=== PATIENT | female | born 1950 | race Hispanic/Latino ===

== ENCOUNTER 2017-08-27 14:46 | Outpatient (CLI) | payer MEDICARE ==
--- NOTE | 2017-08-27 16:20 | MMO ---
BILATERAL SCREENING MAMMOGRAM: 08/27/17 HISTORY: 67-year-old female for screening mammography. COMPARISON: 07/02/16, 06/09/15, 06/07/14. FINDINGS: Bilateral MLO and CC views of the breast show scattered fibroglandular breast tissue. Benign appeari ng calcifications are seen in both breasts. Vascular calcifications are seen. There is no evidence o f suspicious mass, suspicious clustered microcalcifications or area of architectural distortion. Interpretation of this mammogram was performed with the assistance of computer aided detection. IMPRESSION: BI-RADS 2: Benign Finding(s) Routine annual screening mammography (for women over age 40). POS: [facility]
== END 2017-08-27 14:47 | disposition home or self-care (01) ==
LOC: MAMMO 14:46
PROVIDERS: ATTEND Family Medicine
DX: Z12.31 Encounter for screening mammogram for malignant neoplasm of breast (principal)
CPT/HCPCS: 77067; G0202

== ENCOUNTER 2018-09-18 12:44 | Outpatient (CLI) | payer MEDICARE | END 2018-09-18 12:45 | disposition home or self-care (01) | LOC: BICMAMMO 12:44 | PROVIDERS: ATTEND Family Medicine | DX: Z12.31 Encounter for screening mammogram for malignant neoplasm of breast (principal); Z85.3 Personal history of malignant neoplasm of breast | CPT/HCPCS: 77063; 77067 ==

== ENCOUNTER 2021-01-25 15:03 | Outpatient (CLI) | payer MEDICARE ==
--- NOTE | 2021-01-25 15:37 | MMO ---
Bilateral MAMMO Bilat Screen [facility]. CLINICAL HISTORY: Patient is 70 years old and is seen for screening. The patient has the following family history of breast cancer: mother. The patient has a history of malignant (generic) in the left breast 2003. 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 VIEWS: The views performed were: bilateral craniocaudal with tomosynthesis and bilateral mediolateral oblique with tomosynthesis. FILMS COMPARED: The present examination has been compared to prior imaging studies performed at [facility] on 12/17/2019, at [facility] on 09/18/2018, and at [facility] on 08/27/2017. This study has been interpreted with the assistance of computer-aided detection. MAMMOGRAM FINDINGS: There are scattered fibroglandular densities. There are stable benign appearing calcifications seen in both breasts. There are also vascular calcifications. There are no suspicious masses, suspicious calcifications, or new areas of architectural distortion. IMPRESSION: THERE IS NO MAMMOGRAPHIC EVIDENCE OF MALIGNANCY. A ROUTINE FOLLOW-UP MAMMOGRAM IN 1 YEAR IS RECOMMENDED. THE RESULTS OF THIS EXAM WERE SENT TO THE PATIENT. ACR BI-RADS Category 2 - Benign finding MAMMOGRAPHY NOTE: 1. A negative mammogram report should not delay a biopsy if a dominant of clinically suspicious mass is present. 2. Approximately 10% to 15% of breast cancers are not detected by mammography. 3. Adenosis and dense breasts may obscure an underlying neoplasm. Reported by: TOBI STEVE MD Electonically Signed: [id number]
== END 2021-01-25 15:04 | disposition home or self-care (01) ==
LOC: BICMAMMO 15:03
PROVIDERS: ATTEND Family Medicine
DX: Z12.31 Encounter for screening mammogram for malignant neoplasm of breast (principal); Z80.3 Family history of malignant neoplasm of breast; Z85.3 Personal history of malignant neoplasm of breast; Z98.890 Other specified postprocedural states
CPT/HCPCS: 77063; 77067

== ENCOUNTER 2021-05-11 09:28 | Outpatient (CLI) | payer MEDICARE ==
[2021-05-11] MEDS ORDERED: Iopamidol-370 76% 500 ML 1 ML ONE (09:58)
== END 2021-05-11 09:29 | disposition home or self-care (01) ==
LOC: BICCT 09:28
PROVIDERS: ATTEND Family Medicine
DX: R31.9 Hematuria, unspecified (principal)
CPT/HCPCS: 74177